=== PATIENT | female | born 1975 | race Caucasian/White ===

== ENCOUNTER 2021-10-07 19:41 | Emergency (ER) | payer MEDICARE, MEDICAID ==
[2021-10-07] MEDS ORDERED: predniSONE 10 MG Tab PO ONE (19:42)
[2021-10-07] MEDS ORDERED: Triamcinolone Acetonide 40 MG/ML 1 ML SDV IM ONE (20:03)
--- NOTE | 2021-10-07 20:09 | EDM.PDOC ---
ED HPI GENERAL MEDICAL PROBLEM - General Chief Complaint: Skin Complaint Stated Complaint: ALLERGIC REACTION/RASH/BREATHING Time Seen by Provider: 10/07/21 20:04 Source of Information: Reports: Patient History Limitations: Reports: No Limitations - History of Present Illness INITIAL COMMENTS - FREE TEXT/NARRATIVE: Lorraine complains of a an itchy rash for 2 days. It is migratory and mildly responding to Benadryl. No new Meds or diet. She had no difficulty breathing ,no chest pain,but does endorse stress and anxiety.,as well as being exposed to warmth/heat in her dad's house. ED ROS GENERAL - Review of Systems Review Of Systems: Comprehensive ROS is negative, except as noted in HPI. ED EXAM, SKIN/RASH Exam: See Below Exam Limited By: No Limitations General Appearance: Alert, WD/WN, No Apparent Distress Ears: Normal External Exam, Normal Canal, Hearing Grossly Normal, Normal TMs Nose: Normal Inspection, Normal Mucosa, No Blood Throat/Mouth: Normal Inspection, Normal Lips, Normal Teeth, Normal Gums, Normal Oropharynx, Normal Voice, No Airway Compromise Head: Atraumatic, Normocephalic Neck: Normal Inspection, Supple, Non-Tender, Full Range of Motion Respiratory/Chest: No Respiratory Distress, Lungs Clear, Normal Breath Sounds, No Accessory Muscle Use, Chest Non-Tender Cardiovascular: Normal Peripheral Pulses, Regular Rate, Rhythm, No Edema, No Gallop, No JVD, No Murmur, No Rub GI/Abdominal: Normal Bowel Sounds, Soft, Non-Tender, No Organomegaly, No Distention, No Abnormal Bruit, No Mass Back Exam: Normal Inspection, Full Range of Motion, NT Extremities: Normal Inspection, Normal Range of Motion, Non-Tender, No Pedal Edema, Normal Capillary Refill Neurological: Alert, Oriented, CN II-XII Intact, Normal Cognition, Normal Gait, Normal Reflexes, No Motor/Sensory Deficits Psychiatric: Anxious Skin: Warm, Excoriations, Rash Lymphatic: No Adenopathy Course - Vital Signs Last Recorded V/S: Last Vital Signs Temp Pulse Resp BP 165/89 H 10/07/21 20:12 Pulse Ox - Orders/Labs/Meds Meds: Medications Discontinued Medications Generic Name Dose Route Start Last Admin Trade Name Freq PRN Reason Stop Dose Admin Hydroxyzine HCl 50 mg 10/07/21 20:03 12/24/21 20:12 Hydroxyzine Hcl 50 Mg/Ml Sdv IM 10/07/21 20:04 50 mg ONETIME ONE Administration Triamcinolone Acetonide 40 mg 10/07/21 20:03 10/07/21 20:12 Triamcinolone Acetonide 40 Mg/Ml 1 Ml Sdv IM 10/07/21 20:04 40 mg ONETIME ONE Administration Departure - Departure Time of Disposition: 20:51 Disposition: Home, Self-Care 01 Clinical Impression: Hives HTN (hypertension) Qualifiers: Hypertension type: primary hypertension Qualified Code(s): I10 - Essential (primary) hypertension - Discharge Information Instructions: Hives, Hypertension, Adult Referrals: PCP,Unknown [Ordering Only Provider] - 3 Days Forms: ED Department Discharge Sepsis Event Note (ED) - Focused Exam Vital Signs: Vital Signs BP 10/07/21 20:12 165/89 H - Problem List & Annotations (1) Hives SNOMED Code(s): 227704682 Code(s): L50.9 - URTICARIA, UNSPECIFIED Status: Acute Current Visit: No (2) HTN (hypertension) SNOMED Code(s): 77354432 Code(s): I10 - ESSENTIAL (PRIMARY) HYPERTENSION Status: Acute Current Visit: No Qualifiers: Hypertension type: primary hypertension Qualified Code(s): I10 - Essential (primary) hypertension - Problem List Review Problem List Initiated/Reviewed/Updated: Yes - Assessment/Plan Plan: Lorraine was given Vistaril and Kenalog. Will DC on Prednisone
[2021-10-07] MEDS: hydrOXYzine HCl 50 MG/ML SDV IM ONE ×2 (20:12→23:07)
== END 2021-10-07 20:41 | disposition home or self-care (01) ==
LOC: FB.ED 19:41
DX: L50.9 Urticaria, unspecified (principal); I10 Essential (primary) hypertension
CPT/HCPCS: 96372; 99282; J3301; J7512; J3410

== ENCOUNTER 2022-03-15 22:20 | Emergency (ER) | payer MEDICARE, MEDICAID ==
[2022-03-15] MEDS: methylPREDNISolone Sodium Succinate 125 MG/2 ML SDV IM ONE (23:10)
[2022-03-15] MEDS: Albuterol/Ipratropium 3.0-0.5 MG/3 ML Neb Soln NEB ONE (23:10)
== END 2022-03-16 00:30 | disposition home or self-care (01) ==
LOC: FB.ED 22:20
DX: J45.901 Unspecified asthma with (acute) exacerbation (principal); J06.9 Acute upper respiratory infection, unspecified
CPT/HCPCS: 71045; 94640; 96372; 99282; 99285-25; J2930; J7620